=== PATIENT | female | born 1975 | race Caucasian/White ===

== ENCOUNTER 2019-07-26 14:35 | Emergency (ER) | payer MEDICAID ==
[~2019-07-26] VITALS: Ht 157.5 cm; Wt 63.5 kg
[2019-07-26 14:35] VITALS: BP_SYST 198
--- NOTE | 2019-07-26 14:35 | NUR ---
Patient arrived via ALS ambulance, [facility]. Patient arrived hypertensive and bradycardic. Per EMS they were called related to ALOC. LKWT was @ 1000. She went to take a nap with her boyfriend, and she told him to check if she was breathing when he woke up. Patient has history of cocaine use. Unknown if she could have overdosed. Patients pupils pinpoint, given narcan en route. Patient GCS 5. Arousable to painful stimuli. Patient has IV established by EMS 18ga to left AC with 500cc bolus of NS.
[2019-07-26] MEDS ORDERED: LIDOCAINE JECT 2% PF 100 MG/5ML SYRINGE IVP ONE ×2 (14:36→15:15)
[2019-07-26] MEDS ORDERED: VECURONIUM BROMIDE 10 MG/VIAL (NORCURON) IVP ONE ×2 (14:36→15:15)
--- NOTE | 2019-07-26 14:38 | NUR ---
# 16 FR [place] catheter with use of sterile technique. Immediate return of 30 cc cloudy light yellow urine noted. Bedside drainage bag placed below level of bladder. Urine sample collected and sent to lab. Pt tolerated procedure well. Patient unable to toilet self d/t condition
--- NOTE | 2019-07-26 14:40 | NUR ---
Upon further assessment patient found to have right sided gaze to right eye. Pupils are fixed and non reactive. Charge nurse and MD informed. CT brain is ordered. Patient placed on portable quality assurance monitor body and RN, RT and tech went to CT with patient.
[2019-07-26] MEDS ORDERED: NALOXONE HCL 2 MG/2 ML SYR IVP ONE (14:45)
--- NOTE | 2019-07-26 14:46 | NUR ---
Off unit for CT via ACLS protocol
--- NOTE | 2019-07-26 14:52 | NUR ---
Back from CT to bed 1 placed back on quality assurance monitor body
--- NOTE | 2019-07-26 14:55 | NUR ---
Pt positive with bleed. Dr. Mahoney spoke with Dr. Thorne, will transfer to [facility]
--- NOTE | 2019-07-26 14:56 | NUR ---
Time out performed for intubation. Dr. Mahoney at bedside with RT and ACLS RN x2. Pt unresponsive, pupils fixed. Rt eye veer to right. Diaphoretic
[2019-07-26] MEDS ORDERED: niCARdipine 25 MG in D5W 240 ML IV PRN ×2 (15:00→15:15)
--- NOTE | 2019-07-26 15:06 | NUR ---
Patient not known to be of DNR status. Patient medicated with vecuronium 10mg of for sedation prior to placement of ET tube. Respiratory therapy at bedside prior to placement. Size 7.5 ET tube placed by Dr. Mahoney. Cuff inflated with cc air. Auscultation of breath sounds over bilateral chest wall. ET tube secured with device. O2 sats 100% pulse ox. PCXR ordered to check tube placement. Addendum: 07/26/19 at 1548 by [facility]ED[facility] lidocaine 2% given prior to intubation
--- NOTE | 2019-07-26 15:13 | NUR ---
Cardene drip started per protocol. MD orders to titrate SBP to 140
[2019-07-26 15:15] LABS: BASOPHILS # (AUTO) 0.2 K/uL (0.0-0.2); BASOPHILS % (AUTO) 1.3 % (0.0-2.0); EOSINOPHILS # (AUTO) 0.2 K/uL (0.0-0.4); EOSINOPHILS % (AUTO) 1.7 % (0.0-4.0); HEMATOCRIT 39.4 % (36-48); HEMOGLOBIN 12.3 g/dL (12.0-16.0); LYMPHOCYTES # (AUTO) 4.5 K/uL (1.0-5.5); LYMPHOCYTES % (AUTO) 32.9 % (20.5-51.5); MEAN CORPUSCULAR HEMOGLOBIN 24 pg (27-31); MEAN CORPUSCULAR HGB CONC 31 % (32-36); MEAN CORPUSCULAR VOLUME 77 fL (79.0-98.0); MONOCYTES % (AUTO) 7.1 % (1.7-9.3); NEUTROPHILS # (AUTO) 7.7 K/uL (1.8-7.7); PLATELET COUNT (AUTO) 494 K/uL (130-430); RED BLOOD CELL COUNT(AUTO) 5.16 MIL/uL (4.2-6.2); RED CELL DISTRIBUTION WIDTH 18.8 % (9.0-15.0); WHITE BLOOD COUNT (AUTO) 13.6 K/uL (4.8-10.8)
[2019-07-26 15:23] LABS: ANION GAP 7 (5-15); CALCIUM 8.3 mg/dL (8.4-11.0); CHLORIDE 102 mmol/L (98-107); CREATININE 0.96 mg/dL (0.55-1.30); GLUCOSE 143 mg/dL (70-99); SODIUM SERUM 138 mmol/L (136-145); UREA NITROGEN, BLOOD 11 mg/dL (8-21)
--- NOTE | 2019-07-26 15:25 | NUR ---
Patients ventilator settings changed to AC 18; TV 500; 100% FiO2; and 0 PEEP.
[2019-07-26 15:27] LABS: GFR AFRICAN AMERICAN 82 mL/min (>90)
[2019-07-26 15:29] LABS: ALANINE AMINOTRANSFERASE 21 U/L (12-78); ALBUMIN 3.3 g/dL (3.4-4.8); ASPARTATE AMINOTRANSFERASE 25 U/L (10-37); TOTAL BILIRUBIN 0.2 mg/dL (0.0-1.0)
--- NOTE | 2019-07-26 15:30 | NUR ---
Vent Vent settings AC 18, 500, 100% FiO2. Pt tolerating vent change with oxygen saturation of 98% connected to in room monitor.
[2019-07-26 15:32] LABS: BARBITURATE, URINE NEGATIVE (NEG <=200); BENZODIAZEPINE, URINE NEGATIVE (NEG <=150); CANNABINOID, URINE NEGATIVE (NEG <=50); COCAINE, URINE NEGATIVE (NEG <=150); METHAMPHETAMINES SCREEN,URINE NEGATIVE (NEG <=500); OPIATE, URINE NEGATIVE (NEG <=100); PHENCYCLIDINE SCREEN,URINE NEGATIVE (NEG <=25); UR TRICYCLIC ANTIDEPRESSANTS NEGATIVE (NEG <=300); URINE AMPHETAMINE POSITIVE (NEG <=500); URINE METHADONE NEGATIVE (NEG <=200); URINE OXYCODONE SCREEN NEGATIVE (NEG <=100); URINE PROPOXYPHENE SCREEN NEGATIVE (NEG <=300)
[2019-07-26 15:34] LABS: ALCOHOL, BLOOD < 3 mg/dL (<10)
[2019-07-26 15:35] LABS: ACETAMINOPHEN < 1 ug/mL (1-30)
[2019-07-26 15:36] LABS: POTASSIUM 2.9 mmol/L (3.5-5.1)
--- NOTE | 2019-07-26 15:40 | NUR ---
Report Report given to Hira Mcneill RNambulatory care transport nurse at bedside. Pt's approx last know well time is 1200 per pt's boyfriend and pt's mother.
--- NOTE | 2019-07-26 15:40 | NUR ---
[facility] here to recieve the pt going to [facility] ER.
--- NOTE | 2019-07-26 15:41 | NUR ---
Patient to be transferred to [facility]. Is being transferred due to higher level of care. Receiving facility has accepting physician and available space. ER physician has signed transfer form. Patient or responsible republican has agreed to transfer and signed form. Patient belongings inventoried and will be sent with patient. Copy of nursing notes, lab reports, EKG, Physicians Orders and X-rays to be sent with patient. Report called to at receiving facility. Receiving physician is Fadumo. [facility] ambulance service has been called for transfer. Arrived for transfer.
--- NOTE | 2019-07-26 15:43 | NUR ---
Report called to [facility] ED, spoke with Alexandra.
[2019-07-26 15:46] VITALS: BP_SYST 126
--- NOTE | 2019-07-26 15:57 | NUR ---
Off Unit Pt left ED with critical care transport team enroute to [facility], pts mother who was at bedside is informed and all questions answered at this time.
[2019-07-26 16:09] LABS: CKMB RELATIVE INDEX 0.9 (0.0-2.9); CREATINE KINASE MB 3.9 ng/mL (0-3.6)
== END 2019-07-26 15:43 | disposition short-term general hospital (02) ==
LOC: SED 14:35
DX: I62.9 Nontraumatic intracranial hemorrhage, unspecified (principal)
CPT/HCPCS: 31500; 36415; 36600; 70450; 71045; 80053; 80307; 81025; 82140; 82550; 82553; 82803; 82962; 83605; 83880; 84484; 84703; 85025; 85610; 85730; 93005; 96365; 96375; 99291; G0480; G0481; G0482; J3490; J7060